=== PATIENT | male | born 1985 | race Caucasian/White ===

== ENCOUNTER 2018-06-23 10:01 | Outpatient (RCR) | payer OTHER ==
[~2018-06-23 10:01] MED LIST: NORCO 325 MG-51 TAB PO; ZOFRAN 4MG T4 MG/TAB PO
== END 2018-07-20 15:25 | disposition home or self-care (01) ==
LOC: WSOH 10:01
DX: S16.1XXA Strain of muscle, fascia and tendon at neck level, initial encounter (principal); M79.10 Myalgia, unspecified site; Y92.89 Other specified places as the place of occurrence of the external cause; X50.0XXA Overexertion from strenuous movement or load, initial encounter; Y93.89 Activity, other specified; Y99.0 Civilian activity done for income or pay

== ENCOUNTER → 2018-08-20 | Outpatient (CLI) | payer OTHER | LOC: ZCOL.LAB 17:18 | DX: Z13.1 Encounter for screening for diabetes mellitus (principal) ==